=== PATIENT | female | born 1980 | race Caucasian/White ===

== ENCOUNTER 2021-05-26 13:10 | Emergency (ER) | payer OTHER ==
[~2021-05-26] VITALS: Ht 149.9 cm; Wt 85.3 kg
[2021-05-26 13:17] VITALS: BP_SYST 146
--- NOTE | 2021-05-26 13:22 | NUR ---
Patient to ER bed 08 to gown for evaluation. Side rails up.
--- NOTE | 2021-05-26 13:25 | NUR ---
Pt walked in to ER with s/p mechanical trip and fall, reports hitting her chin and bilat knees, pain 4/10. Pt able to bear weight. No open wounds noted. V/S stable, no acute distress noted.
--- NOTE | 2021-05-26 13:45 | NUR ---
ER Dr. Shelby at bedside examining patient.
[2021-05-26] MEDS ORDERED: ACET-2634 PO (13:49)
[2021-05-26 13:59] VITALS: BP_SYST 146
--- NOTE | 2021-05-26 13:59 | NUR ---
Patient given written and verbal discharge instructions and verbalizes understanding. ER MD discussed with patient the results and treatment provided. Patient in stable condition. ID arm band removed. Rx of Tylenol given. Patient educated on pain management and to follow up with PMD. Pain Scale 3. Opportunity for questions provided and answered. Medication side effect fact sheet provided.
== END 2021-05-26 13:59 | disposition home or self-care (01) ==
LOC: SED 13:10
DX: S80.211A Abrasion, right knee, initial encounter (principal); S80.212A Abrasion, left knee, initial encounter; S09.90XA Unspecified injury of head, initial encounter; Z88.0 Allergy status to penicillin; Z79.899 Other long term (current) drug therapy; W18.39XA Other fall on same level, initial encounter; Y93.89 Activity, other specified; Y92.89 Other specified places as the place of occurrence of the external cause; Y99.8 Other external cause status
CPT/HCPCS: 99282